=== PATIENT | female | born 1980 | race African-American/Black ===

== ENCOUNTER 2020-10-11 11:36 | Inpatient (IN) | payer MEDICAID, OTHER ==
[~2020-10-11] VITALS: Ht 160 cm; Wt 98.0 kg
[2020-10-11 12:55] LABS: BASOPHILS % 0.5 % (0.0-2.0); HEMATOCRIT. 40.4 % (36.0-48.0); HEMOGLOBIN. 13.9 g/dL (12.0-16.0); LYMPHOCYTES % 18.3 % (20.0-50.0); MEAN CORPUSCULAR HEMOGLOBIN 34.4 pg (28.0-32.0); MEAN CORPUSCULAR VOLUME 100.1 fL (81.0-99.0); MEAN PLATELET VOLUME 7.9 fl (7.4-10.4); MONOCYTES % 6.1 % (2.0-8.0); NEUTROPHILS % 73.1 % (40.0-76.0); PLATELET 308 x1000/uL (130-400); RED BLOOD CELL COUNT 4.03 mill/uL (4.2-5.4); RED CELL DISTRIBUTION WIDTH 14.9 % (11.6-14.6)
[2020-10-11 12:59] LABS: CHLORIDE 100 mEq/L (98-107)
[2020-10-11 13:03] LABS: ETHANOL BLOOD < 10 mg/dL
[2020-10-11 13:06] LABS: PARTIAL THROMBOPLASTIN TIME 28.7 sec (23.4-31.0)
[2020-10-11 13:07] LABS: HCG SCREEN NEGATIVE; LDL CHOLESTEROL 175 mg/dL (5-100)
[2020-10-11] MEDS ORDERED: POTASSIUM CHLORIDE 20MEQ TABLET SR PO ONE (13:15)
[2020-10-11] MEDS ORDERED: ASPIRIN 325MG EC TABLET PO ONE (14:00)
[2020-10-11] MEDS ORDERED: NA PHOS,M-B/NA PHOS,DI-BA ENEMA 118ML PR PRN (16:45)
[2020-10-11] MEDS ORDERED: DOCUSATE SODIUM 100MG CAPSULE PO PRN (16:45)
[2020-10-11] MEDS ORDERED: LORAZEPAM 2MG/ML CPJ IV PRN (16:45)
[2020-10-11] MEDS ORDERED: GUAIFENESIN 200MG/10ML SUGAR FREE UDC PO PRN (16:45)
[2020-10-11] MEDS ORDERED: DIPHENHYDRAMINE 50MG/ML VIAL IV PRN (16:45)
[2020-10-11] MEDS ORDERED: ACETAMINOPHEN 325MG TABLET PO PRN (16:45)
[2020-10-11] MEDS ORDERED: MAGNESIUM/ALUMINUM HYDROXIDE/SIMETHICONE 30ML UDC PO PRN (16:45)
[2020-10-11] MEDS ORDERED: IPRATROPIUM/ALBUTEROL 0.5-3(2.5)MG/3ML NEB NEB PRN (16:45)
[2020-10-11] MEDS ORDERED: IOHEXOL-350 100 ML BOTTLE ONE (16:47)
[2020-10-11] MEDS: DEXT 5%/0.45% NACL KCL 10MEQ/L 1,000 ML IV SCH (17:21)
[2020-10-11] MEDS: ENOXAPARIN 40MG/0.4ML SYR SUBCUT SCH (17:21)
[2020-10-11 17:26] LABS: CHLORIDE 101 mEq/L (98-107)
[2020-10-11] MEDS: CLONIDINE 0.1MG TABLET PO PRN (20:16)
[2020-10-11 21:45] LABS: CLARITY URINE CLEAR (CLEAR); COLOR URINE YELLOW (YELLOW); KETONES URINE NEGATIVE (NEGATIVE); LEUKOCYTE ESTERASE URINE NEGATIVE (NEGATIVE); NITRITE URINE NEGATIVE (NEGATIVE); OCCULT BLOOD URINE NEGATIVE (NEGATIVE); PROTEIN URINE NEGATIVE (NEGATIVE); SPECIFIC GRAVITY URINE 1.029 (1.005-1.030)
[2020-10-11 22:18] LABS: *BARBITURATES SCREEN URINE NEGATIVE (NEGATIVE); *BENZODIAZEPINES SCREEN URINE NEGATIVE (NEGATIVE); *COCAINE SCREEN URINE NEGATIVE (NEGATIVE); CANNABINOID URINE SCREEN NEGATIVE (NEGATIVE); METHADONE URINE SCREEN NEGATIVE (NEGATIVE); OPIATES URINE SCREEN NEGATIVE (NEGATIVE); PHENCYCLIDINE URINE SCREEN NEGATIVE (NEGATIVE)
[2020-10-11 22:22] LABS: *AMPHETAMINES SCREEN URINE PRESUMTIVE POSITIVE (NEGATIVE)
[2020-10-11] MEDS ORDERED: NALOXONE HCL 0.4MG/ML VIAL IV PRN (23:00)
[2020-10-12 01:00] VITALS: BP 161/99
[2020-10-12] MEDS: DEXT 5%/0.45% NACL KCL 10MEQ/L 1,000 ML IV SCH ×2 (04:41→21:19)
[2020-10-12 06:37] LABS: CHLORIDE 103 mEq/L (98-107)
[2020-10-12 06:45] LABS: BASOPHILS % 0.6 % (0.0-2.0); EOSINOPHILS % 3.6 % (0.0-5.0); HEMATOCRIT. 42.1 % (36.0-48.0); HEMOGLOBIN. 14.3 g/dL (12.0-16.0); LYMPHOCYTES % 27.1 % (20.0-50.0); MEAN CORPUSCULAR HEMOGLOBIN 34.9 pg (28.0-32.0); MEAN CORPUSCULAR VOLUME 102.6 fL (81.0-99.0); MEAN PLATELET VOLUME 8.9 fl (7.4-10.4); MONOCYTES % 7.3 % (2.0-8.0); NEUTROPHILS % 61.4 % (40.0-76.0); PLATELET 310 x1000/uL (130-400); RED BLOOD CELL COUNT 4.11 mill/uL (4.2-5.4); RED CELL DISTRIBUTION WIDTH 15.2 % (11.6-14.6)
[2020-10-12 06:47] LABS: LDL CHOLESTEROL 168 mg/dL (5-100)
[2020-10-12 06:50] LABS: HDL CHOLESTEROL 65 mg/dL (40-59); T4 FREE 0.26 ng/dL (0.76-1.46)
[2020-10-12 08:00] VITALS: BP 157/111
[2020-10-12] MEDS: ASPIRIN 81MG EC TABLET PO SCH (08:46)
[2020-10-12 12:00] VITALS: BP 156/110
[2020-10-12] MEDS ORDERED: PNEUMOCOCCAL 23-VAL P-SAC VAC 0.5 ML IM ONE (12:00)
[2020-10-12] MEDS ORDERED: POTASSIUM CHLORIDE 20MEQ TABLET SR PO NR (14:45)
[2020-10-12 16:30] VITALS: BP 159/105
[2020-10-12] MEDS: ENOXAPARIN 40MG/0.4ML SYR SUBCUT SCH (17:24)
[2020-10-12 17:30] VITALS: BP 169/100
[2020-10-12 17:30] LABS: CREATINE KINASE MB FRACTION 1.6 ng/mL (0.5-3.6)
[2020-10-12] MEDS: CLONIDINE 0.1MG TABLET PO PRN (18:20)
[2020-10-12 20:00] VITALS: BP 160/98
[2020-10-12] MEDS: ATORVASTATIN CALCIUM 40MG TABLET PO SCH (21:10)
[2020-10-12] MEDS: MORPHINE SULFATE 2 MG/ML CPJ (NOT FOR IM USE) IV PRN (21:17)
[2020-10-13] VITALS: BP 116/64
[2020-10-13 00:35] LABS: CREATINE KINASE MB FRACTION 1.4 ng/mL (0.5-3.6)
[2020-10-13] MEDS: CLOPIDOGREL 75MG TABLET PO SCH ×2 (01:46→09:08)
[2020-10-13 04:00] VITALS: BP 103/68
[2020-10-13] MEDS: LEVOTHYROXINE SODIUM 50MCG TABLET PO SCH ×2 (06:38→06:51)
[2020-10-13] MEDS: HYDROCODONE/ACETAMINOPHEN 5/325MG TABLET PO PRN ×2 (06:52→14:59)
[2020-10-13 08:00] VITALS: BP 148/62
[2020-10-13] MEDS: DEXT 5%/0.45% NACL KCL 10MEQ/L 1,000 ML IV SCH (09:08)
[2020-10-13] MEDS: ASPIRIN 81MG EC TABLET PO SCH (09:08)
[2020-10-13 09:20] LABS: HEMATOCRIT. 38.6 % (36.0-48.0); HEMOGLOBIN. 13.1 g/dL (12.0-16.0); MEAN CORPUSCULAR HEMOGLOBIN 34.7 pg (28.0-32.0); MEAN CORPUSCULAR VOLUME 102.4 fL (81.0-99.0); MEAN PLATELET VOLUME 7.9 fl (7.4-10.4); PLATELET 240 x1000/uL (130-400); RED BLOOD CELL COUNT 3.77 mill/uL (4.2-5.4); RED CELL DISTRIBUTION WIDTH 15.1 % (11.6-14.6)
[2020-10-13 09:27] LABS: CHLORIDE 107 mEq/L (98-107)
[2020-10-13 09:38] LABS: CREATINE KINASE 107 IU/L (26-192); CREATINE KINASE MB FRACTION 1.4 ng/mL (0.5-3.6)
[2020-10-13] MEDS: CLONIDINE 0.1MG TABLET PO PRN ×2 (11:53→18:09)
[2020-10-13] MEDS: MORPHINE SULFATE 2 MG/ML CPJ (NOT FOR IM USE) IV PRN (11:54)
[2020-10-13 12:00] VITALS: BP 160/92
[2020-10-13 17:00] VITALS: BP 170/104
[2020-10-13 17:36] LABS: PLATELET ESTIMATE NORMAL
[2020-10-13] MEDS ORDERED: IOHEXOL-350 100 ML BOTTLE ONE (17:36)
[2020-10-13] MEDS: ENOXAPARIN 40MG/0.4ML SYR SUBCUT SCH (18:09)
[2020-10-13 20:45] VITALS: BP 158/71
[2020-10-13] MEDS: ATORVASTATIN CALCIUM 40MG TABLET PO SCH (22:18)
[2020-10-14 00:23] VITALS: BP 146/69
[2020-10-14 04:00] VITALS: BP 132/90
[2020-10-14] MEDS: LEVOTHYROXINE SODIUM 50MCG TABLET PO SCH (05:50)
[2020-10-14] MEDS: DEXT 5%/0.45% NACL KCL 10MEQ/L 1,000 ML IV SCH ×2 (05:52→12:50)
[2020-10-14 07:32] LABS: HEMATOCRIT. 40.1 % (36.0-48.0); HEMOGLOBIN. 13.5 g/dL (12.0-16.0); MEAN CORPUSCULAR HEMOGLOBIN 34.6 pg (28.0-32.0); MEAN CORPUSCULAR VOLUME 102.8 fL (81.0-99.0); PLATELET 143 x1000/uL (130-400); RED CELL DISTRIBUTION WIDTH 15.2 % (11.6-14.6)
[2020-10-14 07:39] LABS: CHLORIDE 104 mEq/L (98-107)
[2020-10-14 07:56] VITALS: BP 144/73
[2020-10-14] MEDS: ASPIRIN 81MG EC TABLET PO SCH (08:54)
[2020-10-14] MEDS: HYDROCODONE/ACETAMINOPHEN 5/325MG TABLET PO PRN ×2 (08:54→20:47)
[2020-10-14] MEDS: CLOPIDOGREL 75MG TABLET PO SCH (08:54)
[2020-10-14 11:16] VITALS: BP 146/109
[2020-10-14 15:26] VITALS: BP 164/100
[2020-10-14] MEDS: CLONIDINE 0.1MG TABLET PO PRN (16:50)
[2020-10-14] MEDS: ENOXAPARIN 40MG/0.4ML SYR SUBCUT SCH (16:50)
[2020-10-14 18:00] LABS: PLATELET ESTIMATE NORMAL
[2020-10-14 20:00] VITALS: BP 159/99
[2020-10-14] MEDS: ATORVASTATIN CALCIUM 40MG TABLET PO SCH (20:40)
[2020-10-15] VITALS: BP 144/96
[2020-10-15] MEDS: CLONIDINE 0.1MG TABLET PO PRN (01:15)
[2020-10-15] MEDS: DEXT 5%/0.45% NACL KCL 10MEQ/L 1,000 ML IV SCH ×2 (02:18→16:29)
[2020-10-15 04:00] VITALS: BP 153/97
[2020-10-15] MEDS: HYDROCODONE/ACETAMINOPHEN 5/325MG TABLET PO PRN (04:50)
[2020-10-15] MEDS: LEVOTHYROXINE SODIUM 50MCG TABLET PO SCH (06:22)
[2020-10-15] MEDS: ONDANSETRON HCL 4MG/2ML INJ IV PRN (06:43)
[2020-10-15 07:34] LABS: BASOPHILS % 0.3 % (0.0-2.0); EOSINOPHILS % 2.7 % (0.0-5.0); HEMATOCRIT. 36.4 % (36.0-48.0); HEMOGLOBIN. 12.6 g/dL (12.0-16.0); LYMPHOCYTES % 9.9 % (20.0-50.0); MEAN CORPUSCULAR HEMOGLOBIN 35.2 pg (28.0-32.0); MEAN CORPUSCULAR VOLUME 101.4 fL (81.0-99.0); MEAN PLATELET VOLUME 9.5 fl (7.4-10.4); MONOCYTES % 8.4 % (2.0-8.0); NEUTROPHILS % 78.7 % (40.0-76.0); PLATELET 140 x1000/uL (130-400); RED BLOOD CELL COUNT 3.59 mill/uL (4.2-5.4); RED CELL DISTRIBUTION WIDTH 14.7 % (11.6-14.6)
[2020-10-15 08:00] VITALS: BP 148/99
[2020-10-15 08:05] LABS: CHLORIDE 105 mEq/L (98-107)
[2020-10-15] MEDS: CLOPIDOGREL 75MG TABLET PO SCH (08:21)
[2020-10-15] MEDS: ASPIRIN 81MG EC TABLET PO SCH (08:21)
[2020-10-15 11:53] VITALS: BP 162/108
[2020-10-15 16:06] VITALS: BP 173/109
[2020-10-15] MEDS: ENOXAPARIN 30MG/0.3ML SYR SUBCUT SCH (16:29)
[2020-10-15 20:00] VITALS: BP 143/98
[2020-10-15] MEDS: MORPHINE SULFATE 2 MG/ML CPJ (NOT FOR IM USE) IV PRN (20:09)
[2020-10-15] MEDS: ATORVASTATIN CALCIUM 40MG TABLET PO SCH (20:09)
[2020-10-16 00:29] VITALS: BP 154/93
[2020-10-16] MEDS: ONDANSETRON HCL 4MG/2ML INJ IV PRN (02:07)
[2020-10-16] MEDS: ENOXAPARIN 30MG/0.3ML SYR SUBCUT SCH ×2 (02:08→13:46)
[2020-10-16 04:00] VITALS: BP 148/89
[2020-10-16] MEDS: DEXT 5%/0.45% NACL KCL 10MEQ/L 1,000 ML IV SCH ×2 (05:01→17:12)
[2020-10-16] MEDS: LEVOTHYROXINE SODIUM 50MCG TABLET PO SCH (06:21)
[2020-10-16 07:08] LABS: BASOPHILS % 0.5 % (0.0-2.0); HEMATOCRIT. 37.1 % (36.0-48.0); HEMOGLOBIN. 12.4 g/dL (12.0-16.0); LYMPHOCYTES % 16.1 % (20.0-50.0); MEAN CORPUSCULAR HEMOGLOBIN 34.4 pg (28.0-32.0); MEAN CORPUSCULAR VOLUME 102.7 fL (81.0-99.0); MEAN PLATELET VOLUME 10.3 fl (7.4-10.4); MONOCYTES % 8.3 % (2.0-8.0); NEUTROPHILS % 72.1 % (40.0-76.0); PLATELET 154 x1000/uL (130-400); RED BLOOD CELL COUNT 3.61 mill/uL (4.2-5.4); RED CELL DISTRIBUTION WIDTH 15.1 % (11.6-14.6)
[2020-10-16 07:33] LABS: CHLORIDE 106 mEq/L (98-107)
[2020-10-16 08:06] VITALS: BP 174/107
[2020-10-16] MEDS: CLONIDINE 0.1MG TABLET PO PRN ×3 (08:22→17:35)
[2020-10-16] MEDS: ASPIRIN 81MG EC TABLET PO SCH (08:22)
[2020-10-16] MEDS: CLOPIDOGREL 75MG TABLET PO SCH (08:22)
[2020-10-16 11:49] VITALS: BP 165/110
[2020-10-16 16:06] VITALS: BP 183/119
[2020-10-16 20:00] VITALS: BP 155/66
[2020-10-16] MEDS: HYDROCODONE/ACETAMINOPHEN 5/325MG TABLET PO PRN (21:20)
[2020-10-16] MEDS: ATORVASTATIN CALCIUM 40MG TABLET PO SCH (21:20)
[2020-10-17] VITALS: BP 163/86
[2020-10-17] MEDS: CLONIDINE 0.1MG TABLET PO PRN (00:27)
[2020-10-17] MEDS: ENOXAPARIN 30MG/0.3ML SYR SUBCUT SCH (02:08)
[2020-10-17] MEDS: DEXT 5%/0.45% NACL KCL 10MEQ/L 1,000 ML IV SCH (03:49)
[2020-10-17 04:00] VITALS: BP 149/89
[2020-10-17] MEDS: LEVOTHYROXINE SODIUM 50MCG TABLET PO SCH (06:30)
[2020-10-17 08:00] VITALS: BP 145/93
[2020-10-17] MEDS: ASPIRIN 81MG EC TABLET PO SCH (08:24)
[2020-10-17] MEDS: CLOPIDOGREL 75MG TABLET PO SCH (08:25)
[2020-10-17] MEDS: HYDROCODONE/ACETAMINOPHEN 5/325MG TABLET PO PRN (08:44)
[2020-10-17 10:58] VITALS: BP 145/93
== END 2020-10-17 12:20 | disposition home health service (06) | DRG 45 ==
LOC: ER 12:36 → MICUSO 14:24 → EDBEDREQSVC 14:30 → EDBEDREQ 14:30 → 6WST 22:46
PROVIDERS: ADMIT Internal Medicine; ATTEND Internal Medicine
DX: I63.9 Cerebral infarction, unspecified (principal); E86.0 Dehydration; I11.9 Hypertensive heart disease without heart failure; G81.94 Hemiplegia, unspecified affecting left nondominant side; R47.01 Aphasia; E03.9 Hypothyroidism, unspecified; I35.1 Nonrheumatic aortic (valve) insufficiency; I77.810 Thoracic aortic ectasia; I44.0 Atrioventricular block, first degree; E78.5 Hyperlipidemia, unspecified; F15.90 Other stimulant use, unspecified, uncomplicated; R47.81 Slurred speech; Z20.822 Contact with and (suspected) exposure to COVID-19; R13.10 Dysphagia, unspecified; G31.9 Degenerative disease of nervous system, unspecified; R29.810 Facial weakness; E87.6 Hypokalemia; Z87.891 Personal history of nicotine dependence; Z59.0 Homelessness
CPT/HCPCS: 36415; 70496; 70498; 70551; 71045; 71275; 80048; 80053; 80061; 80305; 80320; 81003; 82550; 82553; 83036; 83721; 83880; 84439; 84443; 84484; 84703; 85025; 85379; 87426; 90732; 92523; 92610; 93005; 93306; 93970; 97116; 97162; 99291; J1650; J2270; J2405; Q9967; G0480